=== PATIENT | female | born 1955 | race African-American/Black ===

== ENCOUNTER 2024-05-04 15:50 | Emergency (ER) | payer MEDICARE, OTHER ==
[~2024-05-04] VITALS: Ht 160 cm; Wt 69.0 kg
[2024-05-04 15:54] VITALS: PULSE 68; O2SAT 98
[2024-05-04 16:00] VITALS: BP 143/57; RESP 16; TEMP 98; O2SAT 99
[2024-05-04] MEDS: ACETAMINOPHEN 325MG TABLET PO NR (18:09)
[2024-05-04] MEDS: IBUPROFEN 400MG TABLET PO NR (18:09)
== END 2024-05-05 01:40 | disposition home or self-care (01) ==
LOC: ER 15:50
DX: M25.511 Pain in right shoulder (principal)
CPT/HCPCS: 73030; 99283